=== PATIENT | male | born 1945 | race Caucasian/White ===

== ENCOUNTER 2016-07-01 09:39 | Emergency (ER) | payer MEDICARE, BC ==
[~2016-07-01] VITALS: Ht 180.3 cm; Wt 103.4 kg
[2016-07-01 09:59] VITALS: BP 131/85
--- NOTE | 2016-07-01 10:13 | PHYS DOC ---
Past Medical History Past Medical History: Diabetes-Type II, High Cholesterol, Hypertension, Kidney Stone, Renal Disease Additional Past Medical Histor: thyroid disease, protate cancer, liver disease Past Surgical History: Other Additional Past Surgical Histo: prostate seeds, Alcohol Use: Rarely Drug Use: None Adult General Chief Complaint Chief Complaint: URINARY FREQUENCY HPI HPI Patient is a 70 year old male presenting to the emergency department for evaluation of decreased urination with some hematuria and some pain with urination as well. Patient has history of prostate cancer that was treated successfully in addition to some prostatic hyperplasia treated with Flomax. He is from [place] and drove down to [place] for a [employer]. He is taking part in it and said that he drove for [address] yesterday and since returning has had quite a difficult time urinating. He says it has improved for the past several hours and now he is getting more stream out however still not very much and he feels as if he needs to go to the bathroom constantly and there is some blood tinge to his urine as well. He denies any fevers chills nausea vomiting or other systemic symptoms. Review of Systems Review of Systems Constitutional: Denies fever or chills [] GI: Denies abdominal pain, nausea, vomiting, bloody stools or diarrhea [] : + dysuria and hematuria [] Musculoskeletal: Denies back pain or joint pain [] Current Medications Current Medications Current Medications Medications (Trade) Dose Ordered Sig/Maurilio Start Time Stop Time Status Last Admin Dose Admin Ceftriaxone Sodium (Rocephin Im) 1 gm 1X ONCE 07/01/16 11:00 07/01/16 11:01 DC 07/01/16 11:24 1 GM Allergies Allergies Allergies Coded Allergies Type Severity Reaction Last Updated Verified No Known Drug Allergies 07/01/16 No Physical Exam Physical Exam Constitutional: Well developed, well nourished, no acute distress, non-toxic appearance. [] Cardiovascular:Heart rate regular rhythm, no murmur [] Lungs & Thorax: Bilateral breath sounds clear to auscultation [] Abdomen: Bowel sounds normal, soft, no tenderness, no masses, no pulsatile masses. [] Skin: Warm, dry, no erythema, no rash. [] Back: No tenderness, no CVA tenderness. [] Current Patient Data Vital Signs Vital Signs Date Time Temp Pulse Resp B/P Pulse Ox O2 Delivery O2 Flow Rate FiO2 4/27/17 09:59 98.0 106 18 131/85 95 Room Air 98.0 Lab Values Laboratory Tests Test 07/01/16 10:07 Urine Collection Type Unknown Urine Color [place] Urine Clarity Hazy Urine pH 5.0 Urine Specific [place] 1.020 Urine Protein 100mg/dL (NEG-TRACE) Urine Glucose (UA) 250mg/dL (NEG) Urine Ketones (Stick) Negativemg/dL (NEG) Urine Blood Large (NEG) Urine Nitrite Negative (NEG) Urine Bilirubin Negative (NEG) Urine Urobilinogen Dipstick 0.2mg/dL (0.2 mg/dL) Urine Leukocyte Esterase Trace (NEG) Urine RBC Tntc/HPF (0-2) Urine WBC 1-4/HPF (0-4) Urine Bacteria Few/HPF (0-FEW) EKG EKG [] Radiology/Procedures Radiology/Procedures [] Course & Med Decision Making Course & Med Decision Making Patient with symptoms and urine results consistent with urinary tract infection and possible prostatitis. He was given a shot of 1 g of Rocephin in the emergency department and will be started on Levaquin as an outpatient. He says that he can still urinate I told him if he is unable to void or if he is having increasing pain fevers or other general concerns that he should come back to the emergency Department immediately. She is aware and agreeable with plan for discharge and verbalized understanding of the need for follow-up when he returns home and to come back to the ER sooner as above. Dragon Disclaimer Dragon Disclaimer This electronic medical record was generated, in whole or in part, using a voice recognition dictation system. Departure Departure Impression: Primary Impression: UTI (urinary tract infection) Disposition: 01 HOME, SELF-CARE Condition: GOOD Patient Instructions: Urinary Tract Infection Scripts Levofloxacin (Levaquin)750 Mg Tablet1 Tab PO DAILY #5 TAB Prov:CHI THORPE DO 07/01/16 Problem Qualifiers Primary Impression: UTI (urinary tract infection) Urinary tract infection type: site unspecified Hematuria presence: with hematuria Qualified Code: N39.0 - Urinary tract infection, site not specified CHI THORPE DO Jul 01, 2016 10:13
[2016-07-01 10:35] LABS: BILIRUBIN,URINE NEGATIVE (NEG); GLUCOSE,URINE 250 mg/dL (NEG)
[2016-07-01 10:36] LABS: BACTERIA,URINE FEW /HPF (0-FEW); NITRITE,URINE NEGATIVE (NEG); PROTEIN,URINE 100 mg/dL (NEG-TRACE); RBC,URINE TNTC /HPF (0-2); UROBILINOGEN,URINE 0.2 mg/dL (0.2 mg/dL)
[2016-07-01] MEDS ORDERED: LEVO750T31 PO (10:42)
[2016-07-01] MEDS ORDERED: cefTRIAXone IM 1 GM VIAL IM ONE (11:00)
== END 2016-07-01 11:43 | disposition home or self-care (01) ==
LOC: ER 09:39
DX: N39.0 Urinary tract infection, site not specified (principal); E11.9 Type 2 diabetes mellitus without complications; E78.00 Pure hypercholesterolemia, unspecified; I10 Essential (primary) hypertension; Z87.442 Personal history of urinary calculi
CPT/HCPCS: 81001; 87086; 96372; 99284; J0696